=== PATIENT | female | born 1955 | race Caucasian/White ===

== ENCOUNTER → 2017-01-12 | Outpatient (CLI) | payer OTHER ==
[~2017-01-12] MED LIST: ALBUAER2 INH; ASCO1CAP3; LEVO175T PO; MULT-506 PO; OPTIRAY 320 IV PRN; PURINETHOL PO; SULF500T36 PO; magnesium
--- NOTE | 2017-01-12 16:49 | DIAGNOSTIC IMAGING REPORT ---
ABD/PELVIS IV AND ORAL CONT CLINICAL HISTORY: 61 years-old Female presenting with RUQ ABD PAIN, HX OF [place]. TECHNIQUE: Multidetector CT of the abdomen and pelvis was performed after the administration of oral and intravenous contrast. IV contrast: 93 mL of Optiray 320. A dose lowering technique was used consistent with the principles of ALARA (as low as reasonably achievable). COMPARISON: None. CT DOSE (mGy.cm): The estimated cumulative dose is 274.24 mGy.cm. FINDINGS: [place] topogram: Unremarkable. Lung bases: Lung bases clear. No pericardial or pleural effusion. Liver: Normal morphology. No liver lesion. Patent hepatic vasculature. Biliary: No intrahepatic or extrahepatic biliary ductal dilatation. Gallbladder decompressed with apparent wall thickening likely due to underdistention. Pancreas: Parenchymal atrophy. Spleen: Minimal residual splenic tissue in the splenic fossa. Adrenal glands: Normal. Kidneys and ureters: No nephrolithiasis. Well-defined hypodensity in the left kidney which is elevated above water density, measuring 12 mm (series 3 image 182). Mild dilatation of the right renal collecting system and proximal right ureter. Mild urothelial thickening suggested. Gastrointestinal tract: No gross evidence of bowel wall thickening. No perienteric or pericolonic fat infiltration. Peritoneal cavity: No free fluid or intraperitoneal gas. Bladder: Incompletely evaluated secondary to underdistention. Pelvic organs: Normal. Vasculature: Atherosclerosis of the normal caliber abdominal aorta. IVC patent. Lymph nodes: No enlarged lymph nodes in the abdomen or pelvis. Abdominal wall: Normal. Musculoskeletal: Normal. IMPRESSION: 1. Mild right pelvocaliectasis. No evidence of nephrolithiasis or ureteral calculus. No convincing evidence of obstruction. Correlate with urinalysis to exclude upper tract infection. 2. Indeterminate 12 mm left renal lesion, which may represent a hemorrhagic or proteinaceous cyst, although a solid enhancing lesion cannot be excluded. Further evaluation with ultrasound to be considered as clinically warranted. Electronically signed by: Adebayo Pacheco M.D. 01/12/2017 4:48 PM Dictated Date/Time: 01/12/2017 4:38 PM
== END | disposition home or self-care (01) ==
LOC: C.CTS 15:51
PROVIDERS: ATTEND Internal Medicine
DX: K50.90 Crohn's disease, unspecified, without complications (principal); R10.11 Right upper quadrant pain

== ENCOUNTER → 2017-01-21 | Outpatient (CLI) | payer OTHER ==
[~2017-01-21] MED LIST changes: -OPTIRAY 320 IV PRN
--- NOTE | 2017-01-21 12:28 | DIAGNOSTIC IMAGING REPORT ---
RENAL ULTRASOUND CLINICAL HISTORY: Kidney lesion. COMPARISON STUDY: CT of the abdomen and pelvis January 12, 2017. TECHNIQUE: Sonography of the kidneys and the urinary bladder was performed. FINDINGS: The right kidney measures 11.4 x 2.8 x 4.6 cm and the left kidney measures 12.4 x 3.6 x 6.1 cm. There is no hydronephrosis. Renal echogenicity, size and cortical thickness are normal. No urinary calculi are identified. There is a 1.9 x 1.4 x 1.2 cm cystic lesion within the lower pole of the left kidney which corresponds to the lesion shown on CT of January 12, 2017. This lesion is almost entirely cystic. This may contain a few septations or intracystic debris. The bladder is unremarkable. IMPRESSION: 1.9 cm left renal cystic lesion which corresponds to the lesion shown on prior CT of January 12, 2017. This lesion is almost entirely cystic with a few possible septations or internal debris. This lesion is likely benign however a follow-up renal ultrasound in 6 months to ensure stability is recommended. Electronically signed by: Dario Ramon M.D. 01/21/2017 12:27 PM Dictated Date/Time: 01/21/2017 10:53 AM
== END | disposition home or self-care (01) ==
LOC: C.ULTR 09:56
PROVIDERS: ATTEND Physician Assistant Medical
DX: N28.9 Disorder of kidney and ureter, unspecified (principal)

== ENCOUNTER → 2017-07-28 | Outpatient (CLI) | payer OTHER ==
--- NOTE | 2017-07-28 11:43 | DIAGNOSTIC IMAGING REPORT ---
RENAL ULTRASOUND CLINICAL HISTORY: Kidney lesion. Six-month follow-up study. COMPARISON STUDY: CT of the abdomen and pelvis January 12, 2017 and renal ultrasound January 21, 2017. TECHNIQUE: Sonography of the kidneys and the urinary bladder was performed. FINDINGS: The right kidney measures 11.4 x 3.6 x 3.7 cm and the left measures 11.3 x 3.9 x 4.3 cm. Renal echogenicity, size and cortical thickness are normal. Slight fullness within the right upper renal collecting system versus a parapelvic cyst is noted. This is of doubtful significance. A cystic lesion arising from the lower pole of the left kidney extending into the renal sinus is similar to exam of January 21, 2017 when allowing for measurement variability. This measures 2.2 x 1.2 cm. A few possible echogenic foci within this lesion are noted without color flow. IMPRESSION: No change in a 2.2 x 1.2 cm cystic left lower pole renal lesion. This lesion is almost entirely cystic but contains a few echogenic foci without color flow. This lesion is likely benign. A follow-up renal ultrasound in one year to ensure stability is recommended. Electronically signed by: Dario Ramon M.D. 07/28/2017 11:42 AM Dictated Date/Time: 07/28/2017 11:37 AM
== END | disposition home or self-care (01) ==
LOC: C.ULTR 10:37
PROVIDERS: ATTEND Physician Assistant Medical
DX: N28.9 Disorder of kidney and ureter, unspecified (principal)